=== PATIENT | female | born 1985 ===

== ENCOUNTER 2019-05-14 05:21 | Day surgery (SDC) | payer OTHER ==
[~2019-05-14] VITALS: Ht 167.6 cm; Wt 62.5 kg
[~2019-05-14 05:21] MED LIST: MOTRIN 600600 MG/TAB PO; PRENATAL1 TA1 PO
[2019-05-14 05:55] VITALS: BP 102/67; PULSE 99; TEMP 98.6
[2019-05-14] MEDS ORDERED: TYLENOL 500MG500 MG PO (06:02)
--- NOTE | 2019-05-14 06:03 | NUR ---
TO RM AT 0532- CALL LIGHT IN REACH AT BEDSIDE
[2019-05-14 08:05] VITALS: BP 96/59; PULSE 74; TEMP 97.5
--- NOTE | 2019-05-14 08:05 | NUR ---
TO RM 7 PER CART FROM OR. ALERT ORIENTED X3. TALKING TO NURSES AND VERBALIZED IT WAS THE BEST SLEEP SHE HAS HAD. DENIES PAIN OR DISCOMFORT AND DENIES NAUSEA OR VOMITING. ZENA PAD IN PLACE. RECEIVED WATER
[2019-05-14] MEDS ORDERED: IBU600 MG PO (08:16)
[2019-05-14 08:20] VITALS: BP 99/58; PULSE 72
[2019-05-14 08:35] VITALS: BP 100/59; PULSE 63
--- NOTE | 2019-05-14 08:35 | NUR ---
ATE JELLO AND TOLERATED WELL.
[2019-05-14 08:50] VITALS: BP 96/49; PULSE 60
--- NOTE | 2019-05-14 08:50 | NUR ---
AMBULATED TO BATHROOM. VOIDED AND TOLERATED WELL OFFERED TO REST A LITTLE LONGER OR SHE COULD GO HOME. PATIENT STATED SHE WAS READY TO GO HOME.
[2019-05-14 09:25] VITALS: BP 100/62; PULSE 61
--- NOTE | 2019-05-14 09:30 | NUR ---
RECEIVED DISCHARGE INSTRUCTIONS AND VERBALIZED UNDERSTANDING. SCRIPS SENT TO [facility] PER E-SCRIPT BY DR HOROWITZ. RECEIVED A SCRIPT FOR [facility] TO [employer] FOR REMAINS AND A NOTE ON BACK OF SCRIPT FOR PRIMARY PHYSICIAN PER PATIENT POSSIBLE BUNDLE BRANCH BLOCK
--- NOTE | 2019-05-14 09:45 | NUR ---
DISCHARGED PER WC BY NURSING STAFF TO PRIVATE CAR IN CARE OF -MARLON.
== END 2019-05-14 10:14 | disposition home or self-care (01) ==
LOC: SDCO 05:21
DX: O02.1 Missed abortion (principal); O45.91 Premature separation of placenta, unspecified, first trimester; Z3A.12 12 weeks gestation of pregnancy; Z87.891 Personal history of nicotine dependence
CPT/HCPCS: J1885; J2405; J2704; J3010; J7120

== ENCOUNTER 2020-05-10 23:24 | Inpatient (IN) | payer OTHER ==
[~2020-05-10] VITALS: Ht 165.1 cm; Wt 80.0 kg
[~2020-05-10 23:24] MED LIST changes: +IBU600 MG PO; +TYLENOL 500MG500 MG PO
[2020-05-10 23:45] VITALS: BP 121/74; PULSE 95; TEMP 98.1
[2020-05-10] MEDS ORDERED: PRENATAL TABLET PO (23:45)
--- NOTE | 2020-05-10 23:45 | NUR ---
2345 [id number] 41 WEEK GEST TO LR3 WITH C/O CONTRACTIONS, IRREGULAR MOST OF THE DAY AND BECOMING HARDER AROUND 2130 TONIGHT. EFM ON. SVE /-2. BOW INTACT. ADM ASSESSMENT COMPLETED. NO CONTRACTION FOR 20 MINUTES AFTER EFM APPLIED.
[2020-05-11] VITALS (25 sets, daily range): BP systolic 96–137; BP diastolic 52–94; PULSE 67–108; TEMP 97.6–98.4
--- NOTE | 2020-05-11 00:40 | NUR ---
0040 SVE /-1. BENOIT EVERY 10-15 MINUTES WITH HARD CONTRACTIONS. 2045 DR DUVAL NOTIFIED AND ADM INPATIENT.
[2020-05-11 03:17] LABS: HEMOGLOBIN 12.3 g/dl (12.5-16.0); MEAN CELL VOLUME 89 fl (80.0-100.0); MEAN CORPUSCULAR HEMOGLOBIN 30 pg (27.0-31.0); MEAN CORPUSCULAR HGB CONC 33 g/dl (33.0-37.0); MEAN PLATELET VOLUME 9.9 fl (7.4-10.4); PLATELET COUNT 170 K/mm3 (130-400); RED BLOOD COUNT 4.15 M/mm3 (4.10-5.30); REDCELL DISTRIBUTION WIDTH-CV 13.9 % (11.5-14.5)
[2020-05-11 03:21] LABS: HEMATOCRIT 36.9 % (37.0-47.0)
--- NOTE | 2020-05-11 04:15 | NUR ---
0254 SROM WITH CLEAR FLUID. 8/100/0. UNCOMFORTABLE WITH CONTRACTIONS. 0258 DR DUVAL NOTIFIED.
--- NOTE | 2020-05-11 04:22 | NUR ---
0422 COMPLETE DILITATION. READIED FOR DELIVERY. DR DUVAL IN ROOM. ENCOURAGED TO PUSH WITH CONTRACTIONS. 0432 DEL VIABLE MALE OVER 1 LAC WITH APGARS . IV CONTS TO INF. REMAINS IN LR3.
[2020-05-11 04:46] LABS: BAND 1 % (0-10); EOSINOPHIL 1 % (0-4); LYMPHOCYTE 16 % (20.0-51.0); NEUTROPHILS 78 % (42.0-75.2)
--- NOTE | 2020-05-11 05:20 | NUR ---
0520 ZENA PAD 3/4 SATURATED AND CHANGED. FUNDAS FIRM. VOICES NO NEEDS OR COMPLAINTS. NURSING BABY.
--- NOTE | 2020-05-11 05:55 | NUR ---
0555 [facility]. PAD CHANGED WITH 4 CM SATURATED SPOT ON PERIPAD AND 5 CM SPOT ON UNDERPAD. IV CONTS.
[2020-05-12 08:05] VITALS: BP 103/66; PULSE 85; TEMP 98.1
[2020-05-12] MEDS ORDERED: IBU800 M1 PO (08:08)
--- NOTE | 2020-05-12 09:01 | NUR ---
Initial visit; Patient thanked [employer] for offering congratulations and God's blessings for the of her son. [employer] thanked mom for choosing [facility].
[2020-05-12 16:05] VITALS: BP 116/62; PULSE 85; TEMP 97.9
[2020-05-12 20:00] VITALS: BP 103/54; PULSE 82; TEMP 98.3
[2020-05-13 08:00] VITALS: BP 101/54; PULSE 66; TEMP 98.1
== END 2020-05-13 10:59 | disposition home or self-care (01) | DRG 807 ==
LOC: LDRO 23:24 → LDR 23:24 → OB 05-11 00:54 → LDRO 05-11 00:54 → OB 05-11 13:30
PROVIDERS: Obstetrics & Gynecology; ADMIT Obstetrics & Gynecology
PROC: 10E0XZZ Delivery of Products of Conception, External Approach (ICD-10-PCS; principal; 2020-05-11)
PROC: 0HQ9XZZ Repair Perineum Skin, External Approach (ICD-10-PCS; 2020-05-11)
DX: O48.0 Post-term pregnancy (principal); Z37.0 Single live birth; Z3A.40 40 weeks gestation of pregnancy; O70.0 First degree perineal laceration during delivery
CPT/HCPCS: OP; J2540; J2590; J7120